=== PATIENT | male | born 1945 | race Caucasian/White ===

== ENCOUNTER 2018-01-15 08:15 | Day surgery (SDC) | payer MEDICARE ==
[~2018-01-15] VITALS: Ht 190.5 cm; Wt 68.2 kg
[~2018-01-15 08:15] MED LIST: ACET-1600 PO; ALPR1TAB6 PO; ASPI-496 PO; ATEN100T PO; ATEN25TA PO; BECL8.7A6 INH; CALC0.25 PO; CHLO25CA9 PO; CLON1TAB4 PO; DIGO125T10 PO; DIGO250T PO; DULO30CA2 PO; FLUR30CA3 PO; HEPARIN 1,000 UNITS/ML, 10ML ONE; LEVE100020 PO; LEVE500T53 PO; LEVE500T8 PO; MECL25TA4 PO; METO25TA35 PO; OXCA300T PO; TRAZ-137 PO; VORT10TA PO; WARF-36 PO; ZIPR40CA3 PO
[2018-01-15] MEDS ORDERED: SODIUM CHLORIDE 0.9% 1,000 ML IV SCH (08:53)
[2018-01-15 09:11] VITALS: BP 107/71
[2018-01-15] MEDS ORDERED: MIDAZOLAM 1 MG/ML, 2ML ONE (10:03)
[2018-01-15] MEDS ORDERED: FENTANYL PF 100 MCG/2ML ONE (10:03)
[2018-01-15] MEDS ORDERED: CEFAZOLIN 1,000 MG ONE (10:05)
[2018-01-15] MEDS ORDERED: SODIUM CHLORIDE 0.9% PF 10ML ONE (10:05)
[2018-01-15] MEDS ORDERED: METOCLOPRAMIDE 5 MG/ML, 2ML ONE (10:32)
[2018-01-15] MEDS ORDERED: DEXAMETHASONE 4 MG/ML, 1ML ONE (10:32)
[2018-01-15] MEDS ORDERED: ONDANSETRON 2MG/ML, 2ML ONE (10:32)
[2018-01-15] MEDS ORDERED: LIDOCAINE-MPF 2% ,5ML ONE (10:33)
[2018-01-15] MEDS ORDERED: PHENYLEPHRINE 10 MG/ML ONE (10:33)
[2018-01-15] MEDS ORDERED: PROPOFOL 10 MG/ML, 20ML ONE (10:33)
[2018-01-15] MEDS ORDERED: OXYcodone 5 MG/5 ML ORAL.SOL UDC ONE (11:28)
[2018-01-15] MEDS ORDERED: ONDANSETRON 2MG/ML, 2ML IVPush PRN (11:30)
[2018-01-15] MEDS ORDERED: FENTANYL PF 100 MCG/2ML IV PRN (11:30)
[2018-01-15] MEDS ORDERED: HYDROmorphone 1 MG/ML, 1ML IV PRN (11:30)
[2018-01-15] MEDS ORDERED: MEPERIDINE/PF 25MG/0.5ML IVPush PRN (11:30)
[2018-01-15] MEDS ORDERED: MIDAZOLAM 1 MG/ML, 2ML IV PRN (11:30)
[2018-01-15] MEDS ORDERED: LABETALOL 5MG/ML, 20ML IV PRN (11:30)
[2018-01-15] MEDS ORDERED: OXYcodone 5 MG/5 ML ORAL.SOL UDC PO PRN (11:30)
== END 2018-01-15 13:30 | disposition home or self-care (01) ==
LOC: OUT 08:15
PROVIDERS: ATTEND Surgery Vascular Surgery
DX: I12.0 Hypertensive chronic kidney disease with stage 5 chronic kidney disease or end stage renal disease (principal); N18.6 End stage renal disease; Z98.890 Other specified postprocedural states; Z86.14 Personal history of Methicillin resistant Staphylococcus aureus infection; Z79.82 Long term (current) use of aspirin; Z79.899 Other long term (current) drug therapy
CPT/HCPCS: 36415; 36821; 80047; 93005; J1100; J1644; J2250; J2370; J2405; J2704; J2765; J3010; J3490; J7030; J0690